=== PATIENT | female | born 2000 | race Caucasian/White ===

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

== ENCOUNTER 2021-06-13 21:40 | Emergency (ER) | payer SELFPAY ==
[~2021-06-13] VITALS: Ht 160 cm; Wt 66.7 kg
[2021-06-13 21:45] VITALS: BP 120/69
--- NOTE | 2021-06-13 22:03 | NUR ---
20/F BIB MOTHER C/O CRAMPING PELVIC PAIN 08/09 SINCE THURSDAY. PER PATIENT RECENTLY TOOK A TEST AND CAME BACK POSITIVE. PATIENT STATES HAS HAD VAGINAL BLEEDING SINCE THURSDAY. PT STATES PAIN RADIATED TO LOWER BACK. AND BLEEDING STARTED OUT SPOTTING THEN PROGRESSED TO HEAVY BLEEDING. PT DENIES ANY VOMITING, FEVER, AND DIARRHEA. MEDHX: DENIES NKA
[2021-06-13 22:48] LABS: APPEARANCE,URINE SL CLOUDY (CLEAR); BILIRUBIN,URINE NEGATIVE (NEGATIVE); BLOOD, URINE TRACE-I (NEGATIVE); COLOR,URINE YELLOW (YELLOW); LEUKOCYTE ESTERASE ,URINE NEGATIVE (NEGATIVE); NITRITE, URINE NEGATIVE (NEGATIVE); UGLUCOSE NEGATIVE (NEGATIVE)
[2021-06-13 23:13] LABS: RBC,URINE 0-5 /HPF (0-5); WBC,URINE 0-5 /HPF (0-5)
[2021-06-14 00:37] LABS: BASOPHILS # (AUTO) 0.1 K/uL (0.00-0.22); BASOPHILS % (AUTO) 1.3 % (0.0-2.0); EOSINOPHILS # (AUTO) 0.1 K/uL (0-0.4); EOSINOPHILS % (AUTO) 0.9 % (0.0-4.0); HEMATOCRIT 42.9 % (36-48); HEMOGLOBIN 14.3 g/dL (12.0-16.0); LYMPHOCYTES # (AUTO) 1.9 K/uL (2.5-16.5); LYMPHOCYTES % (AUTO) 30.6 % (20.5-51.1); MEAN CORPUSCULAR HEMOGLOBIN 30 pg (27-31); MEAN CORPUSCULAR HGB CONC 33 g/dL (33-37); MEAN CORPUSCULAR VOLUME 88.7 fL (80-94); MONOCYTES # (AUTO) 0.4 K/uL (0.8-1.0); MONOCYTES % (AUTO) 6.4 % (1.7-9.3); NEUTROPHILS # (AUTO) 3.8 K/uL (1.8-7.7); NEUTROPHILS % (AUTO) 60.8 % (42.2-75.2); PLATELET COUNT (AUTO) 222 K/uL (140-450); RED BLOOD CELL COUNT(AUTO) 4.83 MIL/uL (4.20-5.40); RED CELL DISTRIBUTION WIDTH 13.5 % (11.6-13.7); WHITE BLOOD COUNT (AUTO) 6.2 K/uL (4.5-11.0)
--- NOTE | 2021-06-14 00:38 | NUR ---
Ultrasound at bedside.
[2021-06-14 03:15] VITALS: BP 120/69
--- NOTE | 2021-06-14 03:15 | NUR ---
Patient discharged with v/s stable. Written and verbal after care instructions given and explained. Patient verbalized understanding. Ambulatory with steady gait. All questions addressed prior to discharge. Advised to follow up with PMD.
== END 2021-06-14 03:15 | disposition home or self-care (01) ==
LOC: MED 21:40
DX: O03.9 Complete or unspecified spontaneous abortion without complication (principal)
CPT/HCPCS: 36415; 76817; 81001; 81025; 84702; 85025; 86901; 87086; 99285